=== PATIENT | male | born 1955 | race Caucasian/White ===

== ENCOUNTER 2020-05-08 09:31 | Emergency (ER) | payer BC ==
[~2020-05-08] VITALS: Ht 182.9 cm; Wt 94.1 kg
[~2020-05-08 09:31] MED LIST: ASPIRIN81 MG PO; ATIVAN1 MG PO; BAYER CHEWABLE81 MG PO; KLONOPIN0.5 MG PO; LISINOPRIL10 MG PO; LOPRESSOR25 MG PO; PLAVIX75 MG PO; PRAVACHOL20 MG PO; RANEXA500 MG PO; ULTRAM50 MG PO
[2020-05-08 09:44] VITALS: Ht 182.9 cm; Wt 94.1 kg
[2020-05-08] MEDS ORDERED: PLAVIX75 MG PO (09:47)
[2020-05-08 10:05] LABS: BILIRUBIN NEGATIVE (NEGATIVE); KETONE SMALL mg/dL (NEGATIVE); NITRITE NEGATIVE (NEGATIVE); UROBILINOGEN NORMAL mg/dL (< 2)
[2020-05-08 10:08] LABS: BACTERIA MODERATE HPF (NONE SEEN)
[2020-05-08 10:17] LABS: BASOPHILS 0.1 % (0-2); EOSINOPHILS 0 % (0-7); HEMATOCRIT 48.7 % (42.0-54.0); HEMOGLOBIN 16.3 g/dL (13.5-17.5); IMMATURE GRANULOCYTES 0.2 % (0-5); LYMPHOCYTES 4.6 % (15-50); MCH 31.9 pg (26.0-34.0); MCHC 33.5 g/dL (31.0-37.0); MCV 95.3 fL (80.0-100.0); MEAN PLATELET VOLUME 9.8 fL (7.4-10.4); MONOCYTES 3.3 % (2-11); NEUTROPHILS 91.8 % (40-80); PLATELET COUNT 175 10x3/uL (130-400); RBC 5.11 10x6/uL (4.20-6.10); RDW 13.5 % (11.5-14.5)
[2020-05-08 10:27] LABS: CALC OSMOLALITY 282 mosm/kg (275-300); CALCIUM 8.8 mg/dL (8.5-10.1); CARBON DIOXIDE 28.5 mmol/L (21.0-32.0); CHLORIDE - SERUM 104 mmol/L (98-107); GLUCOSE 141 mg/dL (74-106); POTASSIUM - SERUM 3.9 mmol/L (3.5-5.1); SODIUM 139 mmol/L (136-145); UREA NITROGEN 20 mg/dL (7-18); eGFR NON AFRICAN AMERICAN 36 mL/min (90-120)
[2020-05-08 10:38] LABS: ALBUMIN 4.1 g/dL (3.4-5.0); ALKALINE PHOSPHATASE 70 U/L (30-120); ALT (SGPT) 24 U/L (10-68); AMYLASE - SERUM 36 U/L (25-115); BILIRUBIN - TOTAL 0.46 mg/dL (0.2-1.3); LIPASE 63 U/L (73-393); PROTEIN - SERUM 7.1 g/dL (6.4-8.2); TROPONIN-I < 0.017 ng/mL (0.000-0.060)
[2020-05-08] MEDS ORDERED: FLOMAX0.4 MG PO (11:27)
[2020-05-08] MEDS ORDERED: KEFLEX500 MG PO (11:27)
[2020-05-08] MEDS ORDERED: MACROBID100 MG PO (11:27)
[2020-05-08] MEDS ORDERED: ULTRAM50 MG PO (11:28)
[2020-05-08 12:47] VITALS: BP 160/90
== END 2020-05-08 12:47 | disposition home or self-care (01) ==
LOC: D.ER 09:31
PROVIDERS: Emergency Medicine
DX: N39.0 Urinary tract infection, site not specified (principal); N13.30 Unspecified hydronephrosis; N20.0 Calculus of kidney; I10 Essential (primary) hypertension; Z72.0 Tobacco use; R10.31 Right lower quadrant pain